=== PATIENT | female | born 1945 | race Caucasian/White ===

== ENCOUNTER → 2019-02-22 08:14 | Outpatient (CLI) | payer MEDICARE, OTHER, SELFPAY ==
--- NOTE | 2019-02-22 08:25 | RAD_ITS ---
Procedure: Fluoroscopically guided, instillation of anesthetic agent and steroid into the left hip joint. INDICATIONS: Left hip pain. History of osteoarthritis. CONSENT: The entire procedure, risks, benefits and alternatives (including doing nothing) were discussed with the patient preprocedure. Risks presented included (but were not limited to) infection/abscess/septic joint, bleeding, pain, reaction to medications. All patient questions were answered satisfactorily. Written consent was obtained, witnessed and placed on the patient''s chart. TECHNIQUE: The patient was taken into the fluoroscopy suite and placed in the supine position. A short time out was observed. Limited interactive fluoroscopic evaluation of the left hip was performed. An intended percutaneous site was identified and marked. The anterior left hip soft tissues within thoroughly prepped and draped in the usual sterile manner. Local anesthesia was obtained with approximately 2.0 cc of 1% lidocaine without epinephrine. Next, a 20-gauge spinal needle was advanced from an anterior approach through the soft tissues and tip placed on bone. Appropriate needle tip placement within the joint capsule was verified by injection of a small amount of iodinated contrast. Thereafter, 3 cc of 1% lidocaine without epinephrine and 1 cc of Solu-Medrol were injected into the joint capsule. All devices were removed, the soft tissues cleansed and a Band-Aid applied. RAD/Inj/Asp Scotty Jt Should/Hip/Knee IMPRESSION: Successful instillation of steroid and anesthetic agent within the left hip joint. Complication: The patient tolerated the procedure well. There was no evident immediate post procedure complication. Fluoroscopy time 24 seconds. Electronically Signed: Sarthak Lino MD at 9:52 EST , Service support ,
== END ==
PROVIDERS: Family Provider Family Medicine; PCP Family Medicine; Referring Provider Specialist; Visit Provider Specialist
DX: M16.12 Unilateral primary osteoarthritis, left hip (principal)
CPT/HCPCS: 20610; 77002; Q9967; J0702

== ENCOUNTER 2022-09-14 12:28 | Emergency (ER) | payer MEDICARE, OTHER, SELFPAY ==
[2022-09-14 12:30] VITALS: BP 155/64; PULSE 92; RESP 18; TEMP 36.2; O2SAT 100; BMI 25.4
--- NOTE | 2022-09-14 12:44 | EKG12_ITS ---
Test Reason : DIZZINESS Blood Pressure : / mmHG Vent. Rate : 087 BPM Atrial Rate : 087 BPM P-R Int : 146 ms QRS Dur : 092 ms QT Int : 358 ms P-R-T Axes : 073 070 053 degrees QTc Int : 430 ms Normal sinus rhythm Nonspecific ST abnormality Abnormal ECG Confirmed by SUZETTE SIMPSON, JULIEN ([id number]), newspaper editor managing JANINE RIVERO ([id number]) on 09/17/2022 9:06:51 AM Referred By: MERON/GWEN Confirmed By:JULIEN BRADFORD MD
--- NOTE | 2022-09-14 12:44 | RAD_ITS ---
INDICATION: chest pain EXAMINATION/TECHNIQUE: X-RAY - XR Chest 1 View COMPARISON: None. FINDINGS: LINES/DEVICES: None. LUNGS: No consolidation, edema or effusion. No pneumothorax. MEDIASTINUM AND CARDIOVASCULAR STRUCTURES: Cardiac silhouette not enlarged. Central airways and mediastinal contour are unremarkable. BONES AND SOFT TISSUES: Unremarkable. RAD/Chest 1 View (Portable) IMPRESSION: No radiographic evidence of acute cardiopulmonary disease. Electronically Signed: Percy Bowling MD at 14:39 EDT ,
--- NOTE | 2022-09-14 12:51 | ED.VIS.CHEST ---
HPI History of Present Illness Chief Complaint: Dizziness Detail of Chief Complaint: Chest pain for 2 to 3 weeks. Informant: patient Onset/Context/Timing Onset: Weeks Activity at onset: gradual Timing: Continuous Quality: Positive for Aching and Burning Location: Substernal Current Severity: Mild Maximum Severity: Mild Worsened By: Nothing Relieved By: Nothing Associated Symptoms: Positive for Nausea, Lightheadedness and Acid Reflux; Negative for Vomiting, Diaphoresis, Dyspnea, Cough, Fever or Palpitations Narrative Narrative: Healthy 76-year-old female has a history of high cholesterol. No cardiac history. Non-smoker. Says for the last 2 to 3 weeks he has had midsternal discomfort she thought was reflux because she had indigestion in the past. Said she has had some lightheadedness today and some nausea and she thought she should get this evaluated. No shortness of breath. She has no cardiac history. No history of DVT or PE or risk factors. No leg pain or swelling. No hemoptysis. Nothing particular makes the pain better or worse. Is not exertional. She is not short of breath. 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 Prior Similar Symptoms: Yes Recent Illness/Hospitalization: No CVD Risk Factors: Positive for Hypercholesterolemia; Negative for Hypertension, Diabetes, Family History 1' </=55 or Smoking PE Risk Factors: Negative for Recent Travel/Surgery, Recent Immobilization or Prior DVT or PE TAD Risk Factors: Negative for Marfan's Syndrome PFSH PFSH Home Medications pantoprazole 40 mg tablet,delayed release (Protonix) 40 mg PO DAILY Reflux #30 tabs 09/14/22 [Rx Last Taken Unknown] Allergy/AdvReac Type Severity Reaction Status Date / Time No Known Allergies Allergy Verified 02/21/19 15:55 Surgical History H/O: hysterectomy Social History Smoking Status: Former smoker ROS ROS ED ROS Narrative Chest pain. Review of Systems ROS Unobtainable: Denies due to encephalopathy Constitutional Constitutional ED: Denies chills or fever(s) Eyes Eyes: Reports none ENT ENT ED: Denies ear pain Cardiovascular Cardiovascular: Reports as per HPI and chest pain; Denies palpitations or racing heartbeat Respiratory/Chest Respiratory/Chest: Denies cough or dyspnea Gastrointestinal Gastrointestinal: Reports nausea; Denies abdominal pain Genitourinary Genitourinary ED: Denies dysuria or hematuria Musculoskeletal Musculoskeletal: Denies arthralgias Integumentary Denies abscess or Abrasions Neurologic Neurologic: Denies headache(s) Psychiatric Psychiatric: Denies anxiety Endocrine Endocrinology: Denies cold intolerance Hematologic/Lymphatic Hematologic/Lymphatic: Denies easy bleeding Allergic/Immunologic Allergic/Immunologic ED: Denies mouth swelling, tongue swelling or urticaria EXAM Physical Exam Narrative Exam Narrative: Well-appearing 76-year-old female. Vital signs stable afebrile. H EENT exam unremarkable. Neck nontender no JVD. No lymphadenopathy. Lungs clear to auscultation bilaterally. Heart regular rhythm rate about 85 no murmur. Chest wall nontender. Abdomen soft nontender. Moving all 4 extremities. Calves are nontender without edema or cords. Equal symmetrical radial pulses. Back nontender. Skin unremarkable. Neurologically she is awake and alert with no focal motor deficits. Benign exam. Well-appearing. Const Vital Signs: 09/14/22 12:30 09/14/22 12:38 09/14/22 13:18 Temperature 97.2 F L Temperature Source Temporal Pulse Rate 92 Respiratory Rate 18 Respiratory Pattern Normal Blood Pressure 155/64 H Blood Pressure Mean 94 Pulse Ox 100 96 Oxygen Delivery Method Room Air Room Air 09/14/22 13:19 Temperature Temperature Source Pulse Rate 83 Respiratory Rate 16 Respiratory Pattern Blood Pressure 114/62 Blood Pressure Mean 79 Pulse Ox 96 Oxygen Delivery Method Room Air Positive well nourished and well developed; Negative for obese, cachectic, contractures or unkempt General Appearance ED: well developed and NAD; Negative for unkempt, cachectic, contractures or pallor Nutritional Appearance: Negative for cachectic or obese HEENT Reports moist mucous membranes normocephalic and atraumatic; Negative for trauma or tenderness Eyes PERRL and EOMs intact bilaterally General Eye ED: Negative for pale conjunctiva, scleral icterus or other Neck no lymphadenopathy, supple and no JVD General: Negative for tenderness Chest Wall inspection of chest normal and palpation of chest normal Chest: Negative for tenderness Resp normal respiratory effort and clear to auscultation bilaterally Effort and Inspection: Negative for respiratory distress Auscultation: Negative for rales, rhonchi or wheezes Cardio regular rate, regular rhythm, S1 normal heart sound, S2 normal heart sound and no murmurs Rate: Negative for bradycardia or tachycardic Peripheral Pulses: pulses 2+ throughout GI normal to inspection, nondistended, normoactive bowel sounds, soft to palpation, non-tender, non-distended and no masses; Negative for hepatosplenomegaly Back/Spine no CVA tenderness and no thoracic nor lumbar tenderness General Back: Negative for CVA tenderness Cervical Spine: Negative for cervical spine tenderness Extremity normal to inspection General Extremety ED: Negative for edema or pulses abnormal General Extremity: Negative for edema or pulses abnormal Neuro oriented x3, CN's II-XII intact bilaterally and no sensory deficits noted Sensorium / Orientation: awake, alert, oriented to person, oriented to place and oriented to time; Negative for confused, lethargic or stuporous Motor Exam: strength 5/5 throughout Psych mental status grossly normal Appearance: Negative for unkempt Attitude: No agitated Mood & Affect: Negative for depressed, anxious or tearful Skin no rashes or lesions noted and no wounds General Skin Exam: Negative for jaundice or pallor Rashes: No rashes noted Trauma: Negative for abrasion or laceration Heart Score History: Slightly/Non-Suspicious ECG: Normal Age: >/= 65 years Risk Factors: 1 or 2 Risk Factors Troponin: </= Normal Limit Score: 3 MDM MDM MDM Narrative Medical decision making narrative: 76-year-old female with atypical nonexertional nonreproducible chest pain. She undergo cardiac work-up. My clinical suspicion for this being cardiac is low. She has no risk factors or history of prior DVT or PE. Repeat exam at 2:02 PM patient doing well. After the GI cocktail Protonix she said her symptoms went away. We discussed all of her test results they are all normal. There is no signs of this being cardiac in etiology. There is no reason to do a 2-hour troponin because she has had the symptoms for weeks. She is comfortable being discharged home. I will write a prescription for Protonix if she chooses to get it filled. She said she uses [id number] antacids. Follow-up with your doctor if not improving or return if feeling a lot worse. History & Record Review Discussion w/independent historian: Patient Additional record(s) reviewed:: Prior inpatient record, Prior outpatient record and No prior records Lab Data Attestation: I reviewed the patient's lab results. Lab results narrative: CBC normal. White count 8. H&H 14 and 42. Platelets 199. Chemistries show a gap of 6. Normal BUN and creatinine. Glucose 116. Troponin 4. Labs: Laboratory Results - last 24 hr 09/14/22 13:05 WBC 8.4 RBC 4.36 Hgb 14.5 Hct 42.2 MCV 96.8 MCH 33.3 H MCHC 34.4 RDW Std Deviation 43.1 RDW Coeff of Chitra 12.1 Plt Count 199 MPV 10.2 Immature Gran % (Auto) 0.500 Neut % (Auto) 72.8 H Lymph % (Auto) 17.1 L [place] % (Auto) 7.0 Eos % (Auto) 1.9 Baso % (Auto) 0.7 Absolute Neuts (auto) 6.1 Absolute Lymphs (auto) 1.43 Nucleated RBC % 0 Sodium 140 Potassium 3.9 Chloride 106 Carbon Dioxide 28.0 Anion Gap 6 BUN 18 Creatinine 0.94 Estim Creat Clear Calc 47.97 Est GFR (MDRD) Af Amer 74 Est GFR (MDRD) Non-Af 61 BUN/Creatinine Ratio 19.1 Glucose 116 H Calcium 9.8 Troponin I High Sens 4 Radiography Chest X-Ray - ED: 1 View, Read by ED Physician, Normal, Heart, Lungs, Mediastinum, Bony Structures and No Acute Disease Diagnostic Testing: Chest x-ray, portable, single view interpreted by myself shows no acute abnormality. Normal cardiac silhouette. Normal lung hester. Normal mediastinum. Rhythm Strip Rhythm Strip: Sinus Rhythm Rate: 87 Ectopy: None EKG Initial EKG: Attestation: I personally reviewed and interpreted this EKG as follows: Interpretation: Sinus Rhythm and No Acute Injury Pattern Comments: Normal sinus rhythm rate 87 no acute signs of GA or ischemia. Discharge Plan Triage Chief Complaint: Dizziness ED Provider: Rafat Banerjee Dx/Rx/DC Orders Clinical Impression: Acid reflux, Chest pain Instructions: ED GERD (Adult) Prescriptions: New pantoprazole [Protonix] 40 mg tablet,delayed release (DR/EC) 40 mg PO DAILY Qty: 30 0RF Primary Care Provider: Matthew Jorgensen Referrals: Matthew Jorgensen MD [Primary Care Provider] - Activity Restrictions/Additional Instructions: Your labs, chest x-ray and EKG all look good. This appears to be secondary to acid reflux. You can use [id number] Tums or the medication I wrote you for which is Protonix. Follow-up with your doctor as needed. Disposition Disposition: Home, Self Care
[2022-09-14 13:13] LABS: Absolute Lymphocyte Count 1.43 X10^3/uL (0.83-4.51); Absolute Neutrophil Count 6.1 X10^3/uL (2.0-7.7); Basophil# 0.06 X10^3/uL; Basophil% 0.7 % (0-1); Eosinophil# 0.16 X10^3/uL; Eosinophils% 1.9 % (0-5); Hematocrit 42.2 % (37-47); Hemoglobin 14.5 g/dL (12.0-15.0); Lymphocyte # 1.43 X10^3/ul (0.83-4.51); Lymphocyte % 17.1 % (19-41); Mean Corp Hgb Conc 34.4 g/dL (32-36); Mean Corpuscular Hgb 33.3 pg (27.0-32.0); Mean Corpuscular Volume 96.8 fL (81-99); Mean Platelet Vol. 10.2 fl (6.2-12.0); Monocyte# 0.59 X10^3/uL; NRBC Flagged by Analyzer 0 % (0-5); Neutrophil # 6.09 X10^3/uL (2.7-7.7); Neutrophil % 72.8 % (47-70); Platelet Count 199 K/mm3 (150-450); RBC Distribution Width CV 12.1 % (11.6-14.6); RBC Distribution Width SD 43.1 fl (35.1-43.9); Red Blood Count 4.36 M/mm3 (4.2-5.4); White Blood Count 8.4 K/mm3 (4.4-11.0)
[2022-09-14 13:18] VITALS: O2SAT 96
[2022-09-14 13:19] VITALS: BP 114/62; PULSE 83; RESP 16; O2SAT 96
[2022-09-14] MEDS: Pantoprazole Sodium 40 MG Tablet PO (13:20)
[2022-09-14] MEDS: Mag Hydrox/Al Hydrox/Simeth 30 ML UDC PO (13:22)
[2022-09-14 13:29] LABS: Anion Gap 6 (5-15); BUN 18 mg/dL (7-18); BUN/Creat Ratio 19.1 RATIO (10-20); Calcium,Total 9.8 mg/dL (8.5-10.1); Chloride 106 mmol/L (98-107); Creatinine, Serum 0.94 mg/dL (0.55-1.02); EST Glomerular Filtration Rate 61 mL/min (>60); Est Glom Filt Rate - Afr Amer 74 mL/min (>60); Estimated Creatinine Clearance 47.97 ml/min; Glucose 116 mg/dL (74-106); Potassium 3.9 mmol/L (3.5-5.1); Sodium Level 140 mmol/L (136-145); Troponin-I HS 4 pg/mL (3.0-54.0)
--- NOTE | 2022-09-14 14:20 | ED.RN ---
IV removed intact, no bleeding at site.
== END 2022-09-14 14:21 | disposition home or self-care (01) ==
PROVIDERS: Emergency Provider Emergency Medicine; PCP Family Medicine; Visit Provider Emergency Medicine
DX: K21.9 Gastro-esophageal reflux disease without esophagitis (principal); R07.9 Chest pain, unspecified; Z87.891 Personal history of nicotine dependence
CPT/HCPCS: 36415; 71045; 80048; 84484; 85025; 93005; 99285; A4216